=== PATIENT | female | born 1985 | race Caucasian/White ===

== ENCOUNTER 2021-10-22 17:39 | Emergency (ER) | payer OTHER ==
[~2021-10-22] VITALS: Ht 165.1 cm; Wt 86.2 kg
[2021-10-22] MEDS ORDERED: NAPROSYN500 MG PO (21:08)
== END 2021-10-22 21:11 | disposition home or self-care (01) ==
LOC: ED 17:39
DX: M25.531 Pain in right wrist (principal); Z88.0 Allergy status to penicillin